=== PATIENT | female | born 1995 | race Caucasian/White ===

== ENCOUNTER 2017-10-12 21:03 | Emergency (ER) | END 2017-10-12 21:15 | disposition home or self-care (01) ==

== ENCOUNTER 2018-11-26 20:51 | Emergency (ER) | payer SELFPAY ==
[~2018-11-26] VITALS: Ht 152.4 cm; Wt 44.7 kg
[~2018-11-26 20:51] MED LIST: CEPH-443 PO; CLIN300C10 PO; CLOT21CR6 VAGINAL; CLOT30CR24 TOP; FLUC150T PO; IBUP-1542 PO; SULF1TAB31 PO
[2018-11-26 21:05] VITALS: RESP 20; Ht 152.4 cm; Wt 44.7 kg
[2018-11-27] MEDS ORDERED: LIDOCAINE 1% (MPF) 5 ML VIAL INFIL ONE
[2018-11-27] MEDS ORDERED: BACITRACIN 0.9 GM OINT TOP ONE (01:30)
[2018-11-27 01:38] VITALS: BP 119/69; PULSE 77
--- NOTE | 2018-11-27 02:38 | ERD ---
ER Documentation Chief Complaint Chief Complaint TOE PAIN REDNESS AND SWELLING SINCE YESTERDAY HPI History of Present Illness: 23-year-old female who denies a past medical history coming today with complaint of pain, redness, swelling to right great toe that is been present since yesterday. Patient reports having a pedicure yesterday at approximately 1 PM. Patient reports unable to sleep at night due to throbbing of toe. Reports that during pedicure heating technician tried to remove ingrown toenail. Patient reports she has had a paronychia to this toe before and has had to have the toenail cut . Patient reports this episode is more severe than her last episode. At home pharmacological/nonpharmacological treatment for symptoms: Denies Denies social concerns; Denies recent foreign travel ROS All systems reviewed and are negative except as per history of present illness. Medications Home Meds Active Scripts Clotrimazole (Clotrimazole 3) 21 Gm Cream.appl, 1 APPFUL VAGINAL QHS for 7 Days, #1 TUB Prov:JEFFRY REED NP 10/12/17 Clotrimazole* (Clotrimazole* AF) 1% - 30 Gm Cream.gm., 1 APPLIC TOP BID for 7 Days, TUB Prov:JEFFRY REED NP 10/12/17 Fluconazole* (Diflucan*) 150 Mg Tablet, 150 MG PO ONCE, #1 TAB Prov:JEFFRY REED NP 10/12/17 Ibuprofen* (Motrin*) 600 Mg Tab, 600 MG PO Q6H PRN for PAIN AND OR ELEVATED T EMP, #30 TAB Prov:JEFFRY REED NP 10/12/17 Cephalexin* (Keflex*) 500 Mg Capsule, 500 MG PO QID for 10 Days, CAP Prov:JEFFRY REED NP 10/12/17 Sulfamethoxazole/Trimethoprim* (Bactrim Ds* Tablet) 1 Each Tablet, 1 TAB PO BID, #20 TAB Prov:JEFFRY REED NP 10/12/17 Clindamycin Hcl* (Clindamycin Hcl*) 300 Mg Capsule, 300 MG PO TID for 10 Days, CAP Prov:VICTOR HUGO YANEZ NP 4/22/16 Ibuprofen* (Motrin*) 600 Mg Tab, 600 MG PO Q6H PRN for PAIN AND OR ELEVATED TEMP, #30 Prov:JEFFRY REED NP 02/27/15 Allergies Allergies: Coded Allergies: No Known Allergy (Unverified , 11/10/15) PMhx/Soc Medical and Surgical Hx: pt denies Medical Hx, pt denies Surgical Hx History of Surgery: No Anesthesia Reaction: No Hx Neurological Disorder: No Hx Respiratory Disorders: No Hx Cardiac Disorders: No Hx Psychiatric Problems: No Hx Miscellaneous Medical Probl: No Hx Alcohol Use: No Hx Substance Use: No Hx Tobacco Use: No Smoking Status: Never smoker FmHx Family History: No diabetes, No coronary disease Physical Exam Vitals Vital Signs Date Temp Pulse Resp B/P (MAP) Pulse Ox O2 O2 Flow FiO2 Time Delivery Rate 11/27/18 77 119/69 100 Room Air 01:38 (86) 11/26/18 98.4 88 20 129/56 99 21:05 (80) Physical Exam Const: No acute distress Head: Atraumatic Eyes: Normal Conjunctiva ENT: Normal External Ears, Nose and Mouth. Neck: Full range of motion. No meningismus. Resp: Clear to auscultation bilaterally Cardio: Regular rate and rhythm, no murmurs Abd: Soft, non tender, non distended. Normal bowel sounds Skin: No petechiae or rashes Back: No midline or flank tenderness Ext: No cyanosis;. Noted to the great toes of right foot, more prominent laterally than medially, positive erythema, warmth, tenderness to palpation Neur: Awake and alert Psych: Normal Mood and Affect Results 24 hrs Current Medications Medications Dose Sig/Rodolfo Start Time Status Last (Trade) Ordered Route PRN Stop Time Admin Dose Reason Admin Lidocaine 5 ml ONCE ONCE 11/27/18 DC (Xylocaine INFIL 00:00 1% (Mpf)) 11/27/18 00:01 Bacitracin 1 applic ONCE ONCE 11/27/18 DC 11/27/18 (Bacitracin TOP 01:30 01:33 Oint (Ud)) 11/27/18 01:31 Procedures/MDM ED course includes a thorough examination and history. Medications: Lidocaine 1% Imaging: Labs: Low suspicion for life-threatening medical emergency. Low suspicion for infectious emergency that requires antibiotics at this time Otherwise healthy patient presenting with constellation of symptoms likely representing uncomplicated paronychia as characterized by history, physical exam findings. Toenail Removal by me: Anesthesia: 1% lidocaine Digital Block Location: Right great toe, medially and laterally Technique: from nail bed, vertical split, twisting towards remaining nail. Packing: Non-adherent dressing applied Complications: None Recommend bid dressing changes and warm water soaks. 48 hour wound check. Scar minimization instructions given. Patient reassessment 0130: Wound dressed, bleeding controlled. Patient hemodynamically stable. No respiratory distress, otherwise relatively well appearing and nontoxic. Disposition given. Patient educated on diagnoses, prescriptions, follow-up care, return precautions. Strict return precautions given for worsening condition; questions answered discharge. Disposition for discharge with followup in 2 days with PCP/clinic. Departure Diagnosis: Primary Impression: Paronychia Condition: Stable Patient Instructions: Paronychia Referrals: [facility] YOU HAVE RECEIVED A MEDICAL SCREENING EXAM AND THE RESULTS INDICATE THAT YOU DO NOT HAVE A CONDITION THAT REQUIRES URGENT TREATMENT IN THE EMERGENCY DEPARTMENT. FURTHER EVALUATION AND TREATMENT OF YOUR CONDITION CAN WAIT UNTIL YOU ARE SEEN IN YOUR DOCTORS OFFICE WITHIN THE NEXT 1-2 DAYS. IT IS YOUR RESPONSIBILITY TO MAKE AN APPOINTMENT FOR FOL-UP CARE. IF YOU HAVE A PRIMARY DOCTOR --you should call your primary doctor and schedule an appointment IF YOU DO NOT HAVE A PRIMARY DOCTOR YOU CAN CALL OUR PHYSICIAN REFERRAL HOTLINE AT IF YOU CAN NOT AFFORD TO SEE A PHYSICIAN YOU CAN CHOSE FROM THE FOLLOWING [facility] [address] [facility]. [facility] [address] [facility] [address] [facility] [facility] [address] [facility] [facility] [facility] [address] [facility]. [facility]. [address] [facility]. [facility] YOU HAVE RECEIVED A MEDICAL SCREENING EXAM AND THE RESULTS INDICATE THAT YOU DO NOT HAVE A CONDITION THAT REQUIRES URGENT TREATMENT IN THE EMERGENCY DEPARTMENT. FURTHER EVALUATION AND TREATMENT OF YOUR CONDITION CAN WAIT UNTIL YOU ARE SEEN IN YOUR DOCTORS OFFICE WITHIN THE NEXT 1-2 DAYS. IT IS YOUR RESPONSIBILITY TO MAKE AN APPOINTMENT FOR FOLOW-UP CARE. IF YOU HAVE A PRIMARY DOCTOR --you should call your primary doctor and schedule and appointment IF YOU DO NOT HAVE A PRIMARY DOCTOR YOU CAN CALL OUR PHYSICIAN REFERRAL HOTLINE AT . IF YOU CAN NOT AFFORD TO SEE A PHYSICIAN YOU CAN CHOSE FROM THE FOLLOWING [facility] INSTITUTIONS: [facility] [address] [place] [address] [facility] [address] [place] [address] [facility] [address] [place] [address] Additional Instructions: Thank you very much for allowing us to participate in your care. Your health and safety is our top priority at [facility]. It is important to read all discharge instructions and education provided in your discharge packet. *No antibiotics are needed at this time. The removal of the toenail should decrease the infection. You should do warm foot soaks with salt twice daily.* Call your primary care doctor TOMORROW for an appointment during the next 2-4 days and bring all the information. If the symptoms get worse and your provider is unavailable, return to the Emergency Department immediately. If you develop increased redness, warmth, pus drainage, return to emergency room for reevaluation. RUBIA TAM NP November 27, 2018 02:38
[2018-11-28] MEDS ORDERED: CEPH-443 PO (14:08)
[2018-11-28] MEDS ORDERED: SULF1TAB31 PO (14:08)
[2018-11-28] MEDS ORDERED: IBUP800T48 PO (14:08)
== END 2018-11-27 01:39 | disposition home or self-care (01) ==
LOC: FTE 20:51
DX: L03.031 Cellulitis of right toe (principal)

== ENCOUNTER 2018-11-28 11:13 | Emergency (ER) | payer MEDICAID ==
[~2018-11-28] VITALS: Ht 152.4 cm; Wt 45.0 kg
[2018-11-28 11:20] VITALS: BP 118/61; PULSE 87; RESP 16; Ht 152.4 cm; Wt 45.0 kg
[2018-11-28] MEDS ORDERED: BUPIVACAINE 0.25% (MPF) 10 ML 10 ML VIAL INJ ONE (13:00)
[2018-11-28] MEDS ORDERED: BUPIVACAINE 0.25% (MPF) 30 ML INJ INJ ONE (13:30)
[2018-11-28] MEDS ORDERED: IBUP800T48 PO (14:08)
[2018-11-28] MEDS ORDERED: CEPH-443 PO (14:08)
[2018-11-28] MEDS ORDERED: SULF1TAB31 PO (14:08)
[2018-11-28] MEDS ORDERED: IBUPROFEN 800 MG TAB PO ONE (14:30)
[2018-11-28] MEDS ORDERED: CEPHALEXIN 500 MG CAP PO ONE (14:30)
[2018-11-28] MEDS ORDERED: TRIMETHOPRIM/SULFAMETHOX (DS) TAB PO ONE (14:30)
--- NOTE | 2018-11-28 14:51 | ERD ---
ER Documentation Chief Complaint Chief Complaint pt is bib self with c/o right great toe pain, s/p ingrown removal HPI This is a 23-year-old female patient who presents to emergency room with complaint of pain, redness, and drainage to right great toe. No fevers. Patient had toenail removal at this ED last week. No chronic medical conditions. ROS All systems reviewed and are negative except as per history of present illness. Medications Home Meds Active Scripts Ibuprofen* (Motrin*) 800 Mg Tab, 800 MG PO Q6 for 7 Days, #30 TAB Prov:AALIYAH NAVARRO NP 11/28/18 Cephalexin* (Keflex*) 500 Mg Capsule, 500 MG PO QID for soft tissue infection for 7 Days, CAP Prov:AALIYAH NAVARRO NP 11/28/18 Sulfamethoxazole/Trimethoprim* (Bactrim Ds* Tablet) 1 Each Tablet, 1 TAB PO BID for 7 Days, #14 TAB Prov:AALIYAH NAVARRO NP 11/28/18 Clotrimazole (Clotrimazole 3) 21 Gm Cream.appl, 1 APPFUL VAGINAL QHS for 7 Days, #1 TUB Prov:JEFFRY REED NP 10/12/17 Clotrimazole* (Clotrimazole* AF) 1% - 30 Gm Cream.gm., 1 APPLIC TOP BID for 7 Days, TUB Prov:JEFFRY REED NP 10/12/17 Fluconazole* (Diflucan*) 150 Mg Tablet, 150 MG PO ONCE, #1 TAB Prov:JEFFRY REED NP 10/12/17 Ibuprofen* (Motrin*) 600 Mg Tab, 600 MG PO Q6H PRN for PAIN AND OR ELEVATED TEMP, #30 TAB Prov:JEFFRY REED NP 10/12/17 Cephalexin* (Keflex*) 500 Mg Capsule, 500 MG PO QID for 10 Days, CAP Prov:JEFFRY REED COMMUTATOR [employer] 10/12/17 Sulfamethoxazole/Trimethoprim* (Bactrim Ds* Tablet) 1 Each Tablet, 1 TAB PO BID, #20 TAB Prov:JEFFRY REED NP 10/12/17 Clindamycin Hcl* (Clindamycin Hcl*) 300 Mg Capsule, 300 MG PO TID for 10 Days, CAP Prov:VICTOR HUGO YANEZ I. COMM[employer]ATOR [employer] 11/10/15 Ibuprofen* (Motrin*) 600 Mg Tab, 600 MG PO Q6H PRN for PAIN AND OR ELEVATED TEMP, #30 Prov:JEFFRY REED COMMUTATOR [employer] 02/27/15 Allergies Allergies: Coded Allergies: No Known Allergy (Unverified , 11/10/15) PMhx/Soc Medical and Surgical Hx: pt denies Medical Hx History of Surgery: No Anesthesia Reaction: No Hx Neurological Disorder: No Hx Respiratory Disorders: No Hx Cardiac Disorders: No Hx Psychiatric Problems: No Hx Miscellaneous Medical Probl: No Hx Alcohol Use: No Hx Substance Use: No Hx Tobacco Use: No Smoking Status: Never smoker FmHx Family History: No diabetes, No coronary disease, No other Physical Exam Vitals Vital Signs Date Temp Pulse Resp B/P (MAP) Pulse Ox O2 O2 Flow FiO2 Time Delivery Rate 11/28/18 98.0 87 16 118/61 98 11:20 (80) Physical Exam Const: No acute distress Head: Atraumatic Eyes: Normal Conjunctiva ENT: Normal External Ears, Nose and Mouth. Neck: Full range of motion. No meningismus. Resp: Clear to auscultation bilaterally Cardio: Regular rate and rhythm, no murmurs Abd: Soft, non tender, non distended. Normal bowel sounds Skin: No petechiae or rashes. Right great toe: +redness, +purulent drainage, +tenderness, +csm Back: No midline or flank tenderness Ext: No cyanosis, or edema Neur: Awake and alert Psych: Normal Mood and Affect Results 24 hrs Current Medications Medications Dose Sig/Rodolfo Start Time Status Last (Trade) Ordered Route PRN Stop Time Admin Dose Reason Admin Bupivacaine 10 ml ONCE ONCE 11/28/18 DC HCl INJ 13:00 (Marcaine 11/28/18 13:01 0.25% (Mpf) 10 ml) Bupivacaine 10 ml ONCE ONCE 11/28/18 DC HCl INJ 13:30 (Marcaine 11/28/18 13:31 0.25% (Mpf) 30 ml) Cephalexin 500 mg ONCE ONCE 11/28/18 DC 11/28/18 (Keflex) PO 14:30 14:16 11/28/18 14:31 1 tab ONCE ONCE 11/28/18 DC 11/28/18 Trimethoprim/ PO 14:30 14:16 11/28/18 14:31 Sulfamethoxaz ole (Bactrim (Ds)) Ibuprofen 800 mg ONCE ONCE 11/28/18 DC 11/28/18 (Motrin) PO 14:30 14:16 11/28/18 14:31 Procedures/MDM Is a 23-year-old female patient who presents to the emergency room with a paronychia to right great toe. ED COURSE: The patient was stable throughout ED course. I kept the patient and/or family informed of laboratory and diagnostic imaging results throughout the ED course. EKG: PROCEDURES: Toenail repair Repair by me: Anesthesia: Bupivicaine locally Location: right great toe Tendon/Joint/Nerves: No injury Foreign body: None detected after copious irrigation and exploration Technique: foot soaked in betadine and water bath prior to procedure, nail with prior excision 3 days ago, edges trimmed, granulated tissue debrided, silver nitrate used for hemostasis. Steri strips used on edges for directional healing. No evidence of compartment syndrome, neurologic injury, vascular injury, open joint, tendon laceration, or foreign body. Patient is appropriate for outpatient follow up. MEDICATIONS GIVEN: Ibuprofen, Keflex, Bactrim Patient tolerated medication well with no adverse reactions. Patient reported improvement in pain. MDM: This patients soft tissue infection appears to be appropriate for outpatient treatment with close follow-up for reevaluation by a clinician within 24-48 hours. A serious, rapidly progressive infectious process is unlikely based upon the patients presentation and appearance of the infection. Antibiotic treatment has been initiated here and response to treatment will be based on reassessment at close follow-up. The patient has been instructed on signs and symptoms of acute progression of infection and to return immediately if any of these occur. DISPOSITION: The patient has been discharge home to follow-up with community physician. Departure Diagnosis: Primary Impression: Paronychia Condition: Stable Patient Instructions: Paronychia Referrals: COMM[facility] CLINICS YOU HAVE RECEIVED A MEDICAL SCREENING EXAM AND THE RESULTS INDICATE THAT YOU DO NOT HAVE A CONDITION THAT REQUIRES URGENT TREATMENT IN THE EMERGENCY DEPARTMENT. FURTHER EVALUATION AND TREATMENT OF YOUR CONDITION CAN WAIT UNTIL YOU ARE SEEN IN YOUR DOCTORS OFFICE WITHIN THE NEXT 1-2 DAYS. IT IS YOUR RESPONSIBILITY TO M MEENAKSHI AN APPOINTMENT FOR FOLOW-UP CARE. IF YOU HAVE A PRIMARY DOCTOR --you should call your primary doctor and schedule an appointment IF YOU DO NOT HAVE A PRIMARY DOCTOR YOU CAN CALL OUR PHYSICIAN REFERRAL HOTLINE AT IF YOU CAN NOT AFFORD TO SEE A PHYSICIAN YOU CAN CHOSE FROM THE FOLLOWING [facility] [address] [facility] [address] [facility] [address] [facility] [address] [facility] [address] [facility]. [facility] [address] Additional Instructions: Thank you very much for allowing us to participate in your care. Your health and safety is our top priority at [facility]. Call your primary care doctor TOMORROW for an appointment during the next 2-4 days and bring all the information and medications prescribed. Have prescriptions filled and follow precisely the directions on the label. If the symptoms get worse and your provider is unavailable, return to the Emergency Department immediately. COMPLETE ENTIRE COURSE OF ANTIBIOTICS, TAKE IBUPROFEN FOR PAIN AND DISCOMFORT, CONTINUE TO SOAK TOE FOR 2O MIN DAILY UNTIL REDNESS AND DRAINAGE STOPS. ESTABLISH CARE WITH PRIMARY CARE PROVIDER AND YOU MAY NEED TO SEE A ACID REGENERATOR IF INGROWN TOENAIL RETURNS. RETURN TO THE ED IMMEDIATELY WITH FEVER, SEVERE PAIN, WORSENING OF DRAINAGE INCLUDING FOUL ODOR AALIYAH NAVARRO NP November 28, 2018 14:51
== END 2018-11-28 15:10 | disposition home or self-care (01) ==
LOC: FTE 11:13
DX: L03.031 Cellulitis of right toe (principal)
CPT/HCPCS: 11765; Z7502; Z7610